=== PATIENT | male | born 1955 | race Caucasian/White ===

== ENCOUNTER → 2022-02-04 | Day surgery (SDC) | payer OTHER, MEDICARE ==
[~2022-02-04] VITALS: Ht 172.7 cm; Wt 111.1 kg
[~2022-02-04] MED LIST: ELIQUIS5 MG PO; LIPITOR20 MG PO; METFORMIN HCL500 MG PO; ZESTRIL2.5 MG PO
[2022-02-04 06:45] LABS: HCT 41.2 % (42.0-52.0); MCV 94.1 fL (78.0-100.0); MPV 11.8 fL (6.0-9.5); RBC 4.38 M/uL (4.70-6.00); RDW 12.6 % (11.5-14.0); WBC 7.7 K/uL (4.0-10.5)
[2022-02-04 06:57] LABS: BILIRUBIN - TOTAL 0.6 mg/dL (0.2-1.0); BUN/CREAT RATIO (CALC) 15.2 RATIO; CREATININE 0.92 mg/dL (0.67-1.17); GLOBULIN (CALCULATION) 3.8 g/dL; TOTAL PROTEIN 7.8 g/dL (6.4-8.2)
== END | disposition home or self-care (01) ==
LOC: FAS 05:43
PROVIDERS: Orthopaedic Surgery
DX: M16.12 Unilateral primary osteoarthritis, left hip (principal)
CPT/HCPCS: 36415; 76000; 80053; 93005; J1040; J2001; J2250; J2704; J7120; Q9967

== ENCOUNTER 2022-06-17 05:25 | Day surgery (SDC) | payer OTHER, MEDICARE ==
[~2022-06-17] VITALS: Ht 173 cm; Wt 109.0 kg
--- NOTE | 2022-06-17 13:06 | NUR ---
[facility] IN [place] CALLED BACK APPOINTMENT IS JUN 19Thursday AT 11:00 BUT PT MUST BE THERE AT 10:30 TO FILL OUT PAPERWORK
[2022-06-18 06:45] LABS: BASOPHIL 0.3 % (0-2); EOSINOPHIL 0.3 % (0-7); HCT 33.6 % (42.0-52.0); HGB 11.1 g/dl (13.2-18.0); MCH 32.2 pg (25.0-31.0); MCV 97.4 fL (78.0-100.0); MONOCYTE 12.6 % (0-12); MPV 12.4 fL (6.0-9.5); NEUTROPHIL 74.2 % (41-80); NRBC 0; PLT 147 K/uL (150-400); RBC 3.45 M/uL (4.70-6.00); RDW 13.1 % (11.5-14.0); WBC 10.3 K/uL (4.0-10.5)
[2022-06-18 07:19] LABS: BUN/CREAT RATIO (CALC) 13.2 RATIO; CREATININE 1.21 mg/dL (0.67-1.17); POTASSIUM 3.9 mmol/L (3.5-5.1)
[2022-06-18] MEDS ORDERED: FEOSOL325 MG PO (08:37)
== END 2022-06-18 12:12 | disposition home or self-care (01) ==
LOC: FAS 05:25 → FOR 07:00 → FAS 07:00 → FMS 08:04 → FOR 09:00 → FAS 06-18 12:12
PROVIDERS: Orthopaedic Surgery
DX: M16.12 Unilateral primary osteoarthritis, left hip (principal); E11.9 Type 2 diabetes mellitus without complications; I10 Essential (primary) hypertension; E78.5 Hyperlipidemia, unspecified; Z79.01 Long term (current) use of anticoagulants; Z79.84 Long term (current) use of oral hypoglycemic drugs; Z79.899 Other long term (current) drug therapy
CPT/HCPCS: 0054T; 27130; 36415; 73501; 76000; 80048; 82962; 85025; 86850; 86900; 86901; 94010; 94760; 97110; 97162; 97530-GP; C1776; J0171; J0697; J1100; J1170; J1885; J2250; J2270; J2405; J2704; J2795; J3010; J7120

== ENCOUNTER 2022-06-28 11:08 | Emergency (ER) | payer OTHER, MEDICARE ==
[~2022-06-28 11:08] MED LIST changes: +FEOSOL325 MG PO
== END 2022-06-28 15:25 | disposition home or self-care (01) ==
LOC: FER 11:08
DX: M96.89 Other intraoperative and postprocedural complications and disorders of the musculoskeletal system (principal); E11.9 Type 2 diabetes mellitus without complications; Z79.84 Long term (current) use of oral hypoglycemic drugs; Z86.718 Personal history of other venous thrombosis and embolism; Z79.01 Long term (current) use of anticoagulants
CPT/HCPCS: 93971